=== PATIENT | male | born 1945 | race Caucasian/White ===

== ENCOUNTER 2018-03-20 10:26 | Day surgery (SDC) | payer OTHER | END 2018-03-20 14:10 | disposition home or self-care (01) | LOC: EDBD 10:26 → AMB-ERCP 10:26 → AMB-ENDOS 15:51 → AMB-ERCP 15:55 | DX: K80.50 Calculus of bile duct without cholangitis or cholecystitis without obstruction (principal); Z53.8 Procedure and treatment not carried out for other reasons ==